=== PATIENT | female | born 1940 | race Caucasian/White ===

== ENCOUNTER 2024-07-28 09:39 | Inpatient (IN) | payer OTHER, SELFPAY ==
[2024-07-25 21:46] VITALS: BP 122/57; BMI 26.1
[2024-07-25] MEDS: NORCO 5/325 1 TABLET PO (22:28)
--- NOTE | 2024-07-25 23:13 | ED.MUSCINJ ---
HPI-Injury
General
Chief Complaint: Fall
Source: patient
Exam Limitations: none
Time Seen by Provider: 07/25/24 21:46
Nursing documentation reviewed up to this point in time: agreed with
History of Present Illness-Injury
Is this injury a work related problem?: No
Is pt an associate of [facility]/[place]?: No
Initial Injury comments:
Patient to ED s/p fall. States she was walking in kitchen to get a piece of gum. States she is unsure what made her fall. She remembers falling. Denies hitting her head. COmplains of pain to right shoulder, elbow, hip. Brought to ED via EMS
for eval.
Past History
Past History
ED Past Medical History: Arrthythmia, HTN, Hypercholesterolemia, Hypothyroidism and Other
Review of Systems
Review of Systems
Allergies reviewed?: Yes
All Other Systems: ROS reviewed and negative except as documented in HPI and ROS
Constitutional: Reports no symptoms
EENT: Reports no symptoms
Respiratory: Reports no symptoms
Cardiac: Reports no symptoms
ABD/GI: Reports no symptoms
: Reports no symptoms
Musculoskeletal: Reports joint pain (Pain to right shoulder, right elbow, right hip)
Skin: Reports no symptoms
Neurological: Reports no symptoms
Psychiatric: Reports no symptoms
Musculoskeletal Injury Exam
Musculoskeletal Injury Exam
Right Shoulder:
Pain with Movement?: Moderate
Tender to palpation?: Moderate
Soft tissue swelling?: None
External deformity and angulation?: None
Joint effusion?: None
Contusion?: Moderate
Hematoma-local bleeding into tissue?: None
Strain- Sprain- Tear (Connective tissue injury)?: None
Crepitus with movement?: No
Joint instability?: No
Malalignment/deformity?: No
Range of motion: Limited
Distal skin color and temperature: normal-warm & good color
Capillary Refill: normal
Normal distal neurovascular exam?: Yes
Right Elbow:
Pain with Movement?: Moderate
Tender to palpation?: Moderate
Soft tissue swelling?: Moderate
External deformity and angulation?: None
Joint effusion?: None
Contusion?: Moderate
Hematoma-local bleeding into tissue?: Moderate
Strain- Sprain- Tear (Connective tissue injury)?: None
Crepitus with movement?: No
Joint instability?: No
Malalignment/deformity?: No
Range of motion: Limited
Distal skin color and temperature: normal-warm & good color
Capillary Refill: normal
Normal distal neurovascular exam?: Yes
Right Hip:
Pain with Movement?: Moderate
Tender to palpation?: None
Soft tissue swelling?: None
External deformity and angulation?: None
Joint effusion?: None
Contusion?: Moderate
Hematoma-local bleeding into tissue?: None
Strain- Sprain- Tear (Connective tissue injury)?: None
Crepitus with movement?: No
Joint instability?: No
Malalignment/deformity?: No
Range of motion: Full
Distal skin color and temperature: normal-warm & good color
Capillary Refill: normal
Normal distal neurovascular exam?: Yes
Phy Exam
General Physical Exam
General Presentation: well appearing and moderate distress
General age: appears stated age
General Skin: warm and dry
General Habitus: normal
General Mental: alert
General Hydration: appears well hydrated
Eye Exam
Eye Exam: PERRL, EOMI and conjunctiva normal
Cardiovascular Exam
Cardiovascular Exam: regular rate/rhythm and no edema
Pulmonary Exam
Pulmonary Exam: lungs clear, no respiratory distress and chest non tender
Gastrointestinal Exam
Gastrointestinal Exam: non tender and soft
Neurological Exam
Neurological Exam: alert, oriented x3, CN II-XII intact, no motor deficits, no sensory deficits and speech normal
Musculoskeletal Exam
Musculoskeletal Exam: neuro vasc intact and other (Pain to right shoulder, right elbow and right hip)
Skin Exam
Skin Exam: normal color, warm/dry and no rash
Psychiatric Exam
Psychiatric Exam: normal mood/affect
Injury Course
Orders/Labs/Results
Orders:
Orders
07/25/24 21:53
EKG [Electrocardiogram (*1)] Urgent
Reason for Study: Shortness of Breath
EKG- Treatment ONCE
07/25/24 21:55
Elbow, 3 View, Right [CR Elbow - Right Min 3 Views] Urgent
Comment:
Reason For Exam: fall
Hip, Right 2-3 Views [CR Hip - RT w/wo Pel 2-3 Vw*] Urgent
Comment:
Reason For Exam: fall
Include a pelvis x-ray?: Yes
Shoulder, Right, Trauma [CR Shoulder, Trauma - Right] Urgent
Comment:
Reason For Exam: fall
07/25/24 22:24
Hydrocodone 5/APAP 325 [Mcwilliams 5/325] 1 tablet PO NOW STA
07/25/24 23:11
Long Arm Right-Treatment ONCE
Sling Right-Treatment ONCE
07/26/24 01:08
Complete Blood Count/With Diff Urgent
Comprehensive Metabolic Panel Urgent
07/26/24 01:17
Admit/Transfer Patient As Directed
Co-Sign Provider:
Level of Care: Observation services
Assign to:: Medical/Surgical
Physician / Group: hospitalist
Diagnosis: ambulatory dysfunction
HYDROmorphone [Dilaudid] 0.25 mg IV NOW STA
PRN Pain Medication Management As Directed
May give lesser potent ordered pain med per pt: Yes
preference::
Protocol:: Medication orders for pain may be administered in a
manner that supports deferring to patient preference
when the pt is:
- Requesting an ordered lesser potent pain medication.
Least to most potent pain medications are defined
as: acetaminophen < NSAID < tramadol < opioids
(morphine, oxycodone, hydromorphone).
- Requesting a lesser dose of the same medication IF
ORDERED.
- Requesting a less intrusive route of administration
if both routes are prescribed by the provider (PO <
IV).
07/26/24 01:18
Code Status As Directed
Resuscitation Status: Full Code
07/26/24 02:00
Flush (0.9% Sodium Chloride) [Flush (Nss)] See Dose Instructions IV PER PROTOCOL
07/26/24 03:56
Bisacodyl [Dulcolax] 10 mg RECTAL [id number] PRN
Docusate W/Senna [Senokot-S] 1 tablet PO BIDPRN PRN
Oxycodone [Roxicodone] 5 mg PO Q4HPRN PRN
Polyethylene Glycol Powder [Miralax] 17 grams PO DAILYPRN PRN
07/26/24 03:56
VTE Contraindication Routine
VTE Mechanical Device Contraindication: Medical Contraindication
Pharmocologic Contraindication: Medical Contraindication
Activity As Directed
Activity Level: With Assistance
Vital Signs As Directed
Frequency: Per unit guidelines
O2 Therapy [RESP] Routine
Nasal Cannula Liter Flow: 2 LPM
Titrate/Wean O2 to maintain O2 sat greater than (%): 93
Pulse Ox/spot Check [RESP] Routine
Quantity: 1
Pt Eval And Treat Routine
Activity Level: With Assistance
07/26/24 04:00
Acetaminophen [Tylenol] 650 mg PO Q4HWA
07/26/24 Breakfast
Regular
At Your Request: Full Participation
07/26/24 08:00
Apixaban [Eliquis] 2.5 mg PO BID
07/26/24 18:00
Atorvastatin [Lipitor] 40 mg PO QPM
Abnormal Lab Results
07/26/24
01:08
WBC 13.6 H 10^3/uL
(4.8-10.8)
RBC 3.89 L 10^6/uL
(4.20-5.40)
Hgb 11.7 L g/dL
(12.0-16.0)
Hct 34.9 L %
(37.0-47.0)
Abs Immat Gran (auto) 0.1 H 10^3/uL
(0-0.05)
Absolute Neuts (auto) 12.1 H 10^3/uL
(1.4-6.5)
Absolute Lymphs (auto) 0.6 L 10^3/uL
(1.2-3.4)
Absolute Monos (auto) 0.7 H 10^3/uL
(0.1-0.6)
Neutrophils % 89.4 H %
(42.2-75.2)
Lymphocytes % 4.6 L %
(20.5-51.1)
BUN 40 H mg/dl
(7-17)
Creatinine 1.1 H mg/dL
(0.6-1.0)
Glucose 146 H mg/dl
(70-99)
AST 52 H U/L
(14-36)
07/26/24 01:08
07/26/24 01:08
*Radiology
Radiology exam reviewed: preliminary read by ED provider (proximal ulna fx)
*Critical Care Note
Total Time (30-74mins, 75-104mins- exclusive of procedures): Not Applicable
Update Note
Update Note:
Patient to ED s/p fall. Reports pain to right shoulder, elbow and hip. No pain to palpation of hip and shoulder, pain only with movment. Pain and swelling to left elbow. Xrays reviewed. Fx to right proximal ulna noted. No fracture to hip or
shoulder. RUE placed in long arm splint and sling. Given Mcwilliams for pain. SHe states she is unable to move and can not go home. does not feel he can care for her. Will admit tonight for pain management, will need PT eval in AM
ED Attending Note
-
Portions of this chart may have been created with voice recognition software.� Occasional wrong word or��sound alike� substitutions may have occurred due to the inherent limitations of voice recognition software.
Discharge Plan
Departure
Patient Disposition: Admit
Date of Disposition: 07/26/24
Time of Disposition: 00:12
Presentation/result/management discussed w/ accepting MD/DO: Hospitalist
Patient with high blood pressure during this ER visit?: No
Condition: Fair
Covid-19: Not Applicable
Discharge Problem:
Ambulatory dysfunction, Elbow fracture
Interventions
Interventions:
*Risk Screen - Suicide Last Done: 07/25/24 21:46
*General Assessment Last Done: 07/25/24 21:46
*Neglect/Abuse Screening Last Done: 07/25/24 21:46
ED- Fall Risk Assessment Last Done: 07/25/24 22:00
*ED COVID-19 Vaccine History Last Done: 07/25/24 21:46
*Nursing Disposition Last Done: 07/26/24 03:53
ED-Musculoskeletal Assessment Last Done: 07/25/24 22:00
ED- Neurological Assessment Last Done: 07/25/24 22:00
ED-Skin Assessment Last Done: 07/25/24 22:00
Discharge Date and Time
Discharge Date/Time: 07/26/24 03:55
[2024-07-26] VITALS (13 sets, daily range): BP systolic 88–121; BP diastolic 48–69; PULSE 78; O2SAT 95; BMI 25.5
--- NOTE | 2024-07-26 01:10 | HPS.HSE ---
Family Physician
-
Family Physician: Dinora Haywood
Chief Complaint
-
Generalized pain, status post fall and a right elbow fracture
History of Present Illness
This is a 84-year-old with past medical history significant for atrial fibrillation on anticoagulation hypertension and hyperlipidemia who presents to the emergency department from home after fall.
The mechanism of the fall is unclear. Patient denies any loss of consciousness. She was standing at the kitchen counter when she suddenly fell without any loss of consciousness. She denied any antecedent chest pain, palpitations lightheadedness
dizziness nausea headache dyspnea or vision changes. He had been feeling otherwise in usual state of health prior to the episode. She did not recall any sleeping. She does not recall turning or injuring herself at that moment. Due to the severe
pain she was helped up by family and brought to the emergency department. She did not hit her head. In the emergency department the patient was alert coherent and in no acute distress except for pain. She was placed in a splint and in a sling
applied. Patient felt debilitated and she could not go home because she has no one else except for spouse frequently care of her at home.
Initial vital signs in ED were stable with a blood pressure of 120/50 that trended down to 90 systolic. Pulse was 83 and regular and she was at 90% on room air. ECG showed a normal sinus rhythm with a right bundle branch block and rate was 83.
Labs are pending at this time.
Medical History
Past Medical History
Past Medical History: Reports Arrhythmia (Paroxysmal atrial fibrillation), HTN and Hypercholesterolemia
Past Surgical History: Reports
Social History
Tobacco: Non-smoker
Alcohol: Occasional
Drug: None
Personal:
Living: With Family
Employment: Retired
Family History
Family History: Not pertinent
Allergies / Home Medications
Allergies reflects when Allergies were last updated in [employer].
Home Medications with original date entered in [employer]
Allergy/Medication List:
Allergies
Allergy/AdvReac Type Severity Reaction Status Date / Time
No Known Allergies Allergy Unverified 07/25/24 21:55
Home Medications
apixaban 2.5 mg tablet (Eliquis) 2.5 mg PO BID 07/26/24
atorvastatin 40 mg tablet 40 mg PO HS 07/26/24
olmesartan 40 mg-hydrochlorothiazide 12.5 mg tablet 1 tab PO DAILY 07/26/24
Review of Systems
-
History Source: Patient
Constitutional: Reports No Symptoms
EENT: Reports No Symptoms
Respiratory: Reports No Symptoms
Cardiac: Reports No Symptoms
Abdomen/GI: Reports No Symptoms
: Reports No Symptoms
Musculoskeletal: Reports Joint Pain
Skin: Reports No Symptoms
Neurological: Reports No Symptoms
Endocrine: Reports No Symptoms
Hematologic/Lymphatic: Reports No Symptoms
Psych: Reports No Symptoms
Physical Exam
Vital Signs
Vital Signs
Temp Pulse Resp BP Pulse Ox
98.1 F 85 15 122/57 87
07/25/24 21:46 07/25/24 21:46 07/25/24 21:46 07/25/24 21:46 07/25/24 21:46
Physical Exam
General: Well Developed, Well Nourished, No Apparent Distress and Comfortable
HEENT: NormoCephalic, Anicteric, Moist mucous membranes and Atraumatic
Respiratory: Clear
Cardiac: S1/S2 and Regular Rhythm
Breast: Deferred by me
GI: Soft, Non Tender, Non Distended and Normal Bowel Sounds
Rectal: Deferred by Provider
Genito-urinary: Deferred by me
Musculoskeletal: No Clubbing, No Cyanosis, No Edema and Other (Right arm splint and in a sling)
Skin: Warm
Neuro: AO x 3 and Nonfocal/grossly intact
Psych: Calm
Data Reviewed
-
Diagnostic Radiology: Image Personally Visualized and interpreted
Medical Tests (Nuc Med, Echo, EKG etc): Image Personally Visualized and interpreted
Old Records: Reviewed
Impression/Plan
-
IMPRESSION:
PLAN:
Ambulatory dysfunction - Patient with right elbow fracture. Fall appears mechanical w/o loc but mechanism is not entirely clear
- admit to med/surg observation
- pain control
- PT OT evaluation
- case management
- f/u with outpatient ortho
pAFIB - Rate controlled
- continue eliquis 2.5 bid
- rate management pending meds and repeat bp
HTN
- hold bp meds for now while titrating pain control
DVT PPX - on apixaban
Code status - full code
[2024-07-26 01:17] LABS: % Basophils 0.1 % (0-2); % Immature Granulocytes 0.4 % (0-0.5); % Lymphocytes 4.6 % (20.5-51.1); % Monocytes 5.5 % (1.7-9.3); % Neutrophils 89.4 % (42.2-75.2); Absolute Immature Granulocytes 0.1 10^3/uL (0-0.05); Absolute Lymphocytes 0.6 10^3/uL (1.2-3.4); Absolute Monocytes 0.7 10^3/uL (0.1-0.6); Absolute Neutrophils 12.1 10^3/uL (1.4-6.5); Hematocrit 34.9 % (37.0-47.0); Hemoglobin 11.7 g/dL (12.0-16.0); Mean Corp Hgb Conc. 33.5 g/dL (33.0-37.0); Mean Corpuscular Hgb 30.1 pg (27.0-31.0); Mean Corpuscular Volume 89.7 fL (81.0-99.0); Mean Platelet Volume 9.6 fL (7.4-10.4); Nucleated Red Blood Cells % 0 %; Platelet Count 215 10^3/uL (130-400); Red Blood Cell Count 3.89 10^6/uL (4.20-5.40); Red Cell Dist. Width 12.7 % (11.5-14.5); White Blood Cell Count 13.6 10^3/uL (4.8-10.8)
--- NOTE | 2024-07-26 01:30 | EDRN ---
Assumed care of pt. at change of shift, vitals updated, IV placed/labs drawn and sent, pt. awaits ready bed. Ordered medicaton to be given for pain per pt. request. RN encouraged pt. to change into gown so RN could assess full body, but pt. refused,
stating, 'I am very comfortable like this and I don't think it's necessary to change into a gown, I don't want to'. Depspite RN repeat encouragement, pt. continues to refuse.
[2024-07-26 01:33] LABS: ALT (SGPT) 32 U/L (0-35); AST (SGOT) 52 U/L (14-36); Albumin 4.2 g/dl (3.5-5.0); Alkaline Phosphatase 56 U/L (38-126); Blood Urea Nitrogen 40 mg/dl (7-17); Calcium 9.4 mg/dl (8.4-10.2); Carbon Dioxide 26 mmol/L (22-30); Chloride 101 mmol/L (98-107); Estimated Creatinine Clearance 32 ml/min; Glucose 146 mg/dl (70-99); Potassium 4.4 mmol/L (3.5-5.1); Sodium 137 mmol/L (135-145); Total Bilirubin 0.4 mg/dl (0.2-1.3); Total Protein 6.8 g/dl (6.3-8.2); eGFR 49.55
[2024-07-26] MEDS: DILAUDID 0.25 MG IV ×2 (01:42→18:14)
[2024-07-26] MEDS: FLUSH (NSS) 1 FLUSH IV (01:43)
[2024-07-26] MEDS: NSS 500 IV (02:20)
--- NOTE | 2024-07-26 04:00 | PTCARENOTE ---
Patient arrived to unit from ED via stretcher on 4L of O2. Patient pulled over to bed, wearing sling on right arm. Patient A&Ox3. Oriented to unit with call light within reach. Care ongoing.
[2024-07-26] MEDS: TYLENOL 650 MG PO ×3 (04:11→12:36)
[2024-07-26] MEDS: ELIQUIS 2.5 MG PO ×2 (09:39→19:37)
--- NOTE | 2024-07-26 12:03 | CON.ORTHO ---
Consultation - Orthopedics
History
HPI: 83-year-old female presents emergency department yesterday status post fall at home. She was subsequently found to have a nondisplaced right distal clavicle fracture as well as a right olecranon fracture. She was admitted to the medical
service. Orthopedics is consulted for further evaluation and treatment. This morning patient is predominately complaining of lumbar/low back pain. She does localize some mild discomfort to the right AC joint area as well as her right elbow. She
reports that she is comfortable at rest. She reports that she lives at home with her . She does not use any ambulatory aids for assistance
Allergies / Home Medications
Past medical history: Arrhythmia, hypertension, hypercholesterolemia, hypothyroidism
Past surgical history:
Family history: Not pertinent
Social history: Non-smoker, , lives at home with family
Allergy/AdvReac Type Severity Reaction Status Date / Time
No Known Allergies Allergy Unverified 07/25/24 21:55
�Medication �Instructions �Recorded
apixaban 2.5 mg tablet (Eliquis) 2.5 mg PO BID 07/26/24
atorvastatin 40 mg tablet 40 mg PO HS 07/26/24
olmesartan 40 1 tab PO DAILY 07/26/24
mg-hydrochlorothiazide 12.5 mg
tablet
Vital Signs / Lab Results
Temp Pulse Resp BP Pulse Ox
98.3 F 93 16 114/59 95
07/26/24 08:02 07/26/24 08:02 07/26/24 08:02 07/26/24 08:02 07/26/24 08:02
07/26/24 01:08
07/26/24 01:08
10 point review systems reviewed and negative unless otherwise stated
General: Comfortable at rest, somewhat terse with answering questions
Musculoskeletal right upper extremity
There are some mild ecchymotic staining noted over the distal clavicle area
This is tender to palpation
No erythematous skin changes
Splint was removed right elbow, skin was closed, there is moderate tenderness palpation over tip of olecranon
Patient was able to actively extend elbow with only mild lag
Sensation in tact light touch on the speech distally
Motor intact to median, radial, ulnar nerve distributions distally
No significant tenderness palpation midline lumbar spine moderate tenderness palpation paralumbar soft tissues
Patient is able to straight leg raise bilaterally although there is some reproducible back pain and leg pain
No other areas of bony tenderness palpation crepitation long bones or joints on tertiary exam
Diagnostic studies
X-rays right shoulder reveal essentially nondisplaced distal clavicle fracture. Radiographs right elbow reveal very minimally displaced intra-articular olecranon fracture
Assessment / Plan
84-year-old female community ambulator status post fall with nondisplaced right distal clavicle fracture, very minimally displaced intra-articular right olecranon fracture with intact extensor mechanism. I had a long discussion the patient
regarding diagnosis and treatment options. After discussion we mutually elected proceed with nonsurgical treatment for both fractures. Would recommend continued immobilization in posterior slab splint and sling. Would recommend follow-up
outpatient in about 2 weeks for repeat evaluation. Patient is predominately complain of lumbar back pain. Will plan to order lumbar spine x-rays to rule out any compression fracture. Would still recommend mobilization with physical therapy pain
control. Please reach out with any questions or concerns
[2024-07-26] MEDS: ROXICODONE 5 MG PO (12:36)
--- NOTE | 2024-07-26 13:12 | W.PN.UPDATE ---
Update Note
Progress Note Update
Non-billable addendum (H&P submitted 1 AM today)
admitted with fall and found to have R clavicle fracture, R elbow fracture and also back pain with imaging pending
reports significant pain, requesting further IV pain meds
seen by orthopedics; no operative intervention recommended
Assessment:
Ambulatory dysfunction with mechanical fall
- PT/OT - SNF recommended
Traumatic fractures
- Elbow xray: Acute fracture of the olecranon process of the ulna without significant displacement.
- shoulder xray: nondisplaced right distal clavicle fracture
- evaluated by orthopedics: nonoperative management with immobilization in posterior slab splint and sling.
- OP f/u in 2 weeks for repeat exam/radiographs
Lumbar back pain, traumatic
- await L spine Xrays
- pain control with Tylenol QID standing, prn Oxycodone, prn Dilaudid
Leukocytosis
- check UA
- CXR without acute infection
- monitor WBC and fever trend
Parox A. Fib
Essential HTN
- continue Eliquis
- holding ARB/HCTZ - likely resume in AM if BP elevated
HLD - statin
Suspected CKD stage 3b
- monitor Cr
DVT ppx: Eliquis
Code: Full
--- NOTE | 2024-07-26 13:54 | CM ---
Attempted to meet with patient however she was in x ray. Placed a call to patient's spouse however there was no answer. Will attempt to meet with patient later today.
[2024-07-26] MEDS: TYLENOL PO (15:18)
[2024-07-26] MEDS: LIPITOR 40 MG PO (18:02)
[2024-07-26 18:19] LABS: Urine Albumin Trace (Neg - Trace); Urine Bilirubin Negative (Negative); Urine Character Clear (Clear); Urine Color Yellow; Urine Glucose Negative (Negative); Urine Ketone Negative (Negative); Urine Leukocyte Negative (Negative); Urine Nitrite Negative (Negative); Urine Occult Blood Negative (Negative); Urine Urobilinogen Negative (Neg - 1+)
--- NOTE | 2024-07-26 18:56 | PTCARENOTE ---
Pt 95% POX ON 3L. Titrated to room air during shift, found to be 87% RA, denies S.O.B. Currently on 1L O2 95%.
[2024-07-26] MEDS: TYLENOL 1000 MG PO (19:36)
[2024-07-27] MEDS: TYLENOL 1000 MG PO ×3 (01:59→19:37)
[2024-07-27 07:00] VITALS: BP 116/62
[2024-07-27 08:01] LABS: Blood Urea Nitrogen 31 mg/dl (7-17); Calcium 8.8 mg/dl (8.4-10.2); Carbon Dioxide 29 mmol/L (22-30); Chloride 101 mmol/L (98-107); Estimated Creatinine Clearance 33 ml/min; Glucose 107 mg/dl (70-99); Sodium 134 mmol/L (135-145); eGFR 55.55
[2024-07-27 08:19] LABS: Hematocrit 31.1 % (37.0-47.0); Hemoglobin 10.4 g/dL (12.0-16.0); Mean Corp Hgb Conc. 33.4 g/dL (33.0-37.0); Mean Corpuscular Volume 89.6 fL (81.0-99.0); Mean Platelet Volume 10.3 fL (7.4-10.4); Platelet Count 163 10^3/uL (130-400); Red Blood Cell Count 3.47 10^6/uL (4.20-5.40); Red Cell Dist. Width 13.1 % (11.5-14.5); White Blood Cell Count 9.9 10^3/uL (4.8-10.8)
[2024-07-27 09:17] VITALS: BP 91/49
[2024-07-27] MEDS: ELIQUIS 2.5 MG PO ×2 (09:28→19:37)
[2024-07-27] MEDS: ROXICODONE 5 MG PO (09:30)
--- NOTE | 2024-07-27 10:41 | W.PN.HOSP.TC ---
Today's Communication/Plan
-
continue pain control
PT/OT
MRI L spine
Assessment / Plan
Assessment / Plan
Assessment:
Ambulatory dysfunction with mechanical fall
- PT/OT - SNF recommended but patient may opt for home/VN
Traumatic fractures
- Elbow xray: Acute fracture of the olecranon process of the ulna without significant displacement.
- shoulder xray: nondisplaced right distal clavicle fracture
- evaluated by orthopedics: nonoperative management with immobilization in posterior slab splint and sling.
- OP f/u in 2 weeks for repeat exam/radiographs
Lumbar back pain, traumatic
- L spine Xray: Mild L1 compression fracture. Age indeterminate. Multilevel degenerative disc disease.
- obtain MRI L spine with radiating pain. No alarm signs.
- pain control with Tylenol QID standing, prn Oxycodone, prn Dilaudid
Leukocytosis
- reactive
- UA negative
- CXR without acute infection
- monitor WBC and fever trend
Parox A. Fib
Essential HTN
- continue Eliquis
- holding ARB/HCTZ - likely resume in AM if BP elevated
HLD - statin
Suspected CKD stage 3b
- monitor Cr
DVT ppx: Eliquis
Code: Full
Anticipated Discharge: > 48 hours
Subjective/Interval History
-
Date of Service: July 27, 2024
pain stable
reports back pain and leg pain with movement
Objective Data
-
Labs:
Laboratory Results
07/27/24
06:54
WBC 9.9
Hgb 10.4 L
Hct 31.1 L
Plt Count 163 D
Sodium 134 L
Potassium 4.0
Chloride 101
Carbon Dioxide 29
BUN 31 H
Creatinine 1.0
Glucose 107 H
Calcium 8.8
Vital Signs:
Vital Signs
Temp Pulse Resp BP Pulse Ox
97.9 F 77 20 116/62 95
07/27/24 07:00 07/27/24 07:00 07/27/24 07:00 07/27/24 07:00 07/27/24 07:00
I&O
07/26/24 07/27/24 07/28/24
06:59 06:59 06:59
Intake Total 480 / 480 480 / 480 480 / 480
Balance 480 / 480 480 / 480 480 / 480
Physical Exam
-
General: No Apparent Distress
HEENT: Normocephalic and Atraumatic
Respiratory: Negative Wheezes
Cardiac: Regular Rhythm and S1/S2
GI: Soft and Nontender
Genito-urinary: No Costovertebral Tender
Musculoskeletal: No Edema
Neuro: AO x 3
Hematologic / Lymphatic: No Lymphadenopathy
Psych: Calm
Data Reviewed
-
Total Time Spent with Patient (in minutes): 45
Labs: Labs Reviewed by me
[2024-07-27] MEDS: TYLENOL PO (14:32)
[2024-07-27 15:10] VITALS: BP 128/68
[2024-07-27] MEDS: LIPITOR 40 MG PO (16:43)
[2024-07-27] MEDS: DILAUDID 0.25 MG IV (22:18)
[2024-07-27 23:28] VITALS: BP 118/61
[2024-07-28] MEDS: TYLENOL PO (03:58)
[2024-07-28 08:17] LABS: Hematocrit 31.6 % (37.0-47.0); Hemoglobin 10.6 g/dL (12.0-16.0); Mean Corp Hgb Conc. 33.5 g/dL (33.0-37.0); Mean Corpuscular Hgb 30.2 pg (27.0-31.0); Mean Platelet Volume 10.1 fL (7.4-10.4); Platelet Count 166 10^3/uL (130-400); Red Blood Cell Count 3.51 10^6/uL (4.20-5.40); Red Cell Dist. Width 12.9 % (11.5-14.5); White Blood Cell Count 9.5 10^3/uL (4.8-10.8)
[2024-07-28] MEDS: SENOKOT-S 1 TABLET PO (08:21)
[2024-07-28] MEDS: TYLENOL 1000 MG PO ×3 (08:21→19:49)
[2024-07-28] MEDS: DULCOLAX 10 MG RECTAL (08:21)
[2024-07-28] MEDS: ELIQUIS 2.5 MG PO ×2 (08:22→19:48)
[2024-07-28] MEDS: ROXICODONE 5 MG PO ×3 (08:34→22:35)
[2024-07-28] MEDS: MIRALAX 17 GRAMS PO (08:35)
[2024-07-28 08:40] VITALS: BP 95/65
[2024-07-28 08:57] LABS: Blood Urea Nitrogen 27 mg/dl (7-17); Calcium 8.9 mg/dl (8.4-10.2); Carbon Dioxide 29 mmol/L (22-30); Chloride 100 mmol/L (98-107); Estimated Creatinine Clearance 33 ml/min; Glucose 108 mg/dl (70-99); Potassium 3.9 mmol/L (3.5-5.1); Sodium 134 mmol/L (135-145); eGFR 55.55
--- NOTE | 2024-07-28 11:51 | W.PN.UPDATE ---
Update Note
Progress Note Update
MRI and radiographs lumbar spine reviewed.
Non displaced sacral ala fracture, lumbar spinal stenosis/spondylosis. No acute compression fracture noted
No orthopedic intervention planned
WBAT BL lower extremity, mobilize with therapy, pain control
Follow up outpatient in 2-3 weeks
[2024-07-28 13:24] VITALS: BP 101/61; PULSE 83; O2SAT 93
--- NOTE | 2024-07-28 13:30 | W.PN.HOSP.TC ---
Today's Communication/Plan
-
encourage oral pain control
DC planning to SNF
Assessment / Plan
Assessment / Plan
Assessment:
Ambulatory dysfunction with mechanical fall
- PT/OT - SNF recommended but patient may opt for home/VN
Traumatic fractures
- Elbow xray: Acute fracture of the olecranon process of the ulna without significant displacement.
- shoulder xray: nondisplaced right distal clavicle fracture
- evaluated by orthopedics: nonoperative management with immobilization in posterior slab splint and sling.
- OP f/u in 2 weeks for repeat exam/radiographs
Lumbar back pain, traumatic
- L spine Xray: Mild L1 compression fracture. Age indeterminate. Multilevel degenerative disc disease.
- MRI L spine: Vertically oriented acute nondisplaced fracture of the right sacral ala.
- pain control with Tylenol QID standing, prn Oxycodone, prn Dilaudid
Leukocytosis
- reactive
- UA negative
- CXR without acute infection
- monitor WBC and fever trend
Parox A. Fib
Essential HTN
- continue Eliquis
- holding ARB/HCTZ - likely resume in AM if BP elevated
HLD - statin
Suspected CKD stage 3b
- monitor Cr
DVT ppx: Eliquis
Code: Full
Anticipated Discharge: 24 - 48 hours
Subjective/Interval History
-
Date of Service: July 28, 2024
pain controlled with oxycodone, more pain during ambulation attempts
+ BM today
Objective Data
-
Labs:
Laboratory Results
07/28/24
07:46
WBC 9.5
Hgb 10.6 L
Hct 31.6 L
Plt Count 166
Sodium 134 L
Potassium 3.9
Chloride 100
Carbon Dioxide 29
BUN 27 H
Creatinine 1.0
Glucose 108 H
Calcium 8.9
Vital Signs:
Vital Signs
Temp Pulse Resp BP Pulse Ox
97.7 F 86 20 95/65 97
07/28/24 08:40 07/28/24 08:40 07/28/24 08:40 07/28/24 08:40 07/28/24 08:40
I&O
07/27/24 07/28/24 07/29/24
06:59 06:59 06:59
Intake Total 480 / 480 1620 / 1620
Balance 480 / 480 1620 / 1620
Physical Exam
-
General: No Apparent Distress
HEENT: Normocephalic and Atraumatic
Respiratory: Negative Wheezes
Cardiac: Regular Rhythm and S1/S2
GI: Soft
Genito-urinary: No Costovertebral Tender
Musculoskeletal: No Edema
Neuro: AO x 3
Hematologic / Lymphatic: No Lymphadenopathy
Psych: Calm
Data Reviewed
-
Total Time Spent with Patient (in minutes): 44
Labs: Labs Reviewed by me
[2024-07-28 16:56] VITALS: BP 123/48
[2024-07-28] MEDS: LIPITOR 40 MG PO (18:27)
[2024-07-28 23:29] VITALS: BP 111/52
[2024-07-29] MEDS: TYLENOL PO ×2 (02:19→20:33)
[2024-07-29] MEDS: SYNTHROID 25 MCG PO (05:46)
[2024-07-29 07:15] LABS: Hematocrit 28.4 % (37.0-47.0); Hemoglobin 9.7 g/dL (12.0-16.0); Mean Corp Hgb Conc. 34.2 g/dL (33.0-37.0); Mean Corpuscular Hgb 30.5 pg (27.0-31.0); Mean Corpuscular Volume 89.3 fL (81.0-99.0); Mean Platelet Volume 10.5 fL (7.4-10.4); Platelet Count 171 10^3/uL (130-400); Red Blood Cell Count 3.18 10^6/uL (4.20-5.40); White Blood Cell Count 8.5 10^3/uL (4.8-10.8)
[2024-07-29 07:23] VITALS: BP 121/49
[2024-07-29 07:51] LABS: Blood Urea Nitrogen 33 mg/dl (7-17); Calcium 8.7 mg/dl (8.4-10.2); Carbon Dioxide 31 mmol/L (22-30); Chloride 97 mmol/L (98-107); Estimated Creatinine Clearance 30 ml/min; Glucose 106 mg/dl (70-99); Potassium 4.4 mmol/L (3.5-5.1); Sodium 133 mmol/L (135-145); eGFR 49.55
[2024-07-29] MEDS: ELIQUIS 2.5 MG PO ×2 (08:17→20:32)
[2024-07-29] MEDS: TYLENOL 1000 MG PO ×2 (08:17→13:28)
[2024-07-29] MEDS: DILAUDID 0.25 MG IV (08:18)
[2024-07-29] MEDS: OCUVITE SOFTGEL 1 CAP PO (08:18)
[2024-07-29] MEDS: FLUSH (NSS) 2 FLUSH IV (08:20)
--- NOTE | 2024-07-29 09:49 | CM ---
Addendum entered by Gem Leonard 07/29/24 16:21:
Per Beth/Alexandru liaison, pt does not meet criteria for acute rehab.
TT PT, Tejal who completed eval today informing of this. Per Tejal, pt is appropriate for SNF and will update PT eval/note to reflect this
Pt prev expressed interest in [facility] and [facility]. Referrals sent via [facility]
Will need auth
Original Note:
Chart reviewed for d/c planning. Per PT/OT pt is currently being recommended for acute rehab at this time
Discussed w/ pt at bedside. Per pt, she is agreeable to rehab as she states she needs it but was under the impression she was going to a SNF. CM discussed PT/OT eval yesterday and informed of the acute rehab recommendation. Pt was a bit confused of
SNF vs Acute rehab, CM explained acute is more hours of therapy per day vs skilled. Pt stated she will have to further think about this as she states she doesn't believe she can do a fast pace therapy route.
CM TT hospitalist for physiatry consult to determine acute rehab appropriateness
Plan: Acute rehab being recommended. Will await physiatry assessment
[2024-07-29] MEDS: ROXICODONE 5 MG PO ×2 (11:06→20:35)
--- NOTE | 2024-07-29 11:25 | W.PN.HOSP.TC ---
Today's Communication/Plan
-
add higher dose prn Oxy and keep low dose Prn Oxy. try to wean Dilaudid
PMR eval for acute rehab
Assessment / Plan
Assessment / Plan
Assessment:
Ambulatory dysfunction with mechanical fall
- PT/OT - SNF vs acute rehab. PMR eval.
Traumatic fractures
- Elbow xray: Acute fracture of the olecranon process of the ulna without significant displacement.
- shoulder xray: nondisplaced right distal clavicle fracture
- evaluated by orthopedics: nonoperative management with immobilization in posterior slab splint and sling.
- OP f/u in 2 weeks for repeat exam/radiographs
Lumbar back pain, traumatic
- L spine Xray: Mild L1 compression fracture. Age indeterminate. Multilevel degenerative disc disease.
- MRI L spine: Vertically oriented acute nondisplaced fracture of the right sacral ala.
- pain control with Tylenol QID standing, prn Oxycodone, prn Dilaudid
Leukocytosis
- reactive
- UA negative
- CXR without acute infection
- monitor WBC and fever trend
Parox A. Fib
Essential HTN
- continue Eliquis
- holding ARB/HCTZ
- monitor BP
HLD - statin
Suspected CKD stage 3b
- monitor Cr
DVT ppx: Eliquis
Code: Full
Anticipated Discharge: > 48 hours
Subjective/Interval History
-
Date of Service: July 29, 2024
pain improving slowly
now agreeable to acute rehab eval
Objective Data
-
Labs:
Laboratory Results
07/29/24
06:43
WBC 8.5
Hgb 9.7 L
Hct 28.4 L
Plt Count 171
Sodium 133 L
Potassium 4.4
Chloride 97 L
Carbon Dioxide 31 H
BUN 33 H
Creatinine 1.1 H
Glucose 106 H
Calcium 8.7
Vital Signs:
Vital Signs
Temp Pulse Resp BP Pulse Ox
98.3 F 83 18 121/49 95
07/29/24 07:23 07/29/24 07:23 07/29/24 07:23 07/29/24 07:23 07/29/24 07:23
I&O
07/28/24 07/29/24 07/30/24
06:59 06:59 06:59
Intake Total 1620 / 1620 480 / 480
Balance 1620 / 1620 480 / 480
Physical Exam
-
General: No Apparent Distress
HEENT: Normocephalic and Atraumatic
Respiratory: Negative Wheezes
Cardiac: Regular Rhythm and S1/S2
GI: Soft and Nontender
Genito-urinary: No Costovertebral Tender
Musculoskeletal: No Edema
Neuro: AO x 3
Hematologic / Lymphatic: No Lymphadenopathy
Psych: Calm
Data Reviewed
-
Total Time Spent with Patient (in minutes): 41
Labs: Labs Reviewed by me
[2024-07-29 11:55] VITALS: BP 118/73; BP 128/66; PULSE 79; PULSE 81; O2SAT 91
[2024-07-29 13:58] VITALS: BP 118/73; BP 128/66; PULSE 79; PULSE 82; O2SAT 91
--- NOTE | 2024-07-29 14:55 | CON.MR ---
Consultation
Consultation Request
Date/Time Consultation Performed: 07/29/24 1400
Performing Provider: Dr. Ang
Reason for Consultation: Gait dysfunction, rehab options
Medical History
-
Chief Complaint: Weakness, fall, elbow fx
History of Present Illness:
I had the opportunity to see Julianna Willis in rehabilitation consultation today. This is an 84 year old female admitted on 07/26 after a fall at home. Patient states she was in the kitchen and getting some gum and then she fell, but doesn't
really know how she fell. Denies having any dizziness or vertigo symptoms or even lightheadedness prior to the fall. Doesn't remember her legs giving out but just fell. Noted in ER with right olecranon process non-displaced fracture, right
non-displaced clavicle fracture. Did have a superior endplate fracture at L1 on xrays, but had MRI of lumbar spine, and found that the L1 fracture is old/chronic but did have a right sacral ala fracture, non-displaced.
Seen by ortho and deemed non-operative care of the R elbow and clavicle and placed in a splint and sling.
Hospital course noted with CKD, elevated BUN/Cr, anemia, reactive leukocytosis with UA and CXR negative.
Patient seen at bedside this afternoon and sitting up in chair. with her in room. Complains of pain in the right elbow and arm, but denies any paresthesias or numbness into the hand or digits. 'Doesn't feel right' in the lower limbs but
denies any pain there. Some low back pain. No numbness into the lower limbs.
Past medical history with a-fib on apixaban at home, HTN, HLD.
Past Medical History
Past Medical History: HTN
Social History
Functional Level Premorbidity:
Independent for all activities. Did have cane at home but was not using it at the time
Current Funct Level: Ambulation, Transfer, UE/LE Dressing:
Transfers Mod A, Ambulation Mod Ax2 with posterior lean.
Personal:
Living: With Spouse
Number of Floors: 2 (Has 1st floor setup)
# Steps to Enter: 2
Potential First Floor Set Up: Yes
Allergies / Home Medications
Allergy/AdvReac Type Severity Reaction Status Date / Time
No Known Allergies Allergy Unverified 07/25/24 21:55
�Medication �Instructions �Recorded �Confirmed �Last Taken �Type
apixaban 2.5 mg tablet (Eliquis) 2.5 mg PO BID atrial fibrillation 07/26/24 07/28/24 07/25/24 08:00 History
atorvastatin 40 mg tablet 40 mg PO HS High Cholesterol 07/26/24 07/28/24 07/24/24 22:00 History
olmesartan 40 1 tab PO DAILY Blood Pressure 07/26/24 07/28/24 07/25/24 08:00 History
mg-hydrochlorothiazide 12.5 mg
tablet
levothyroxine 25 mcg tablet 25 mcg PO DAILY Thyroid 07/28/24 07/28/24 07/26/24 History
vit C 250 mg-vit E 90 mg-zinc 40 1 cap PO DAILY Supplement 07/28/24 07/28/24 Unknown History
mg-copper 1 [id number]
capsule (PreserVision AREDS-2)
Review Of Systems
-
History Source: Patient and Family
All other systems: Negative unless noted
Constitutional: Reports Fatigue
Eye: Reports No Symptoms
EENT: Reports No Symptoms
Respiratory: Reports No Symptoms
Cardiac: Reports No Symptoms
Abdomen/GI: Reports No Symptoms
Musculoskeletal: Reports Joint Pain and Muscle Pain
Integumentary: Reports No Symptoms
Neurological: Reports Weakness
Psych: Reports No Symptoms
Endocrine: Reports No Symptoms
Hematologic/Lymphatic: Reports No Symptoms
Immunology: Reports No Symptoms
Physical Exam
Active Medications
Generic Name Dose Route Start Last Admin
Trade Name Freq PRN Reason Stop Dose Admin
Acetaminophen 1,000 mg 07/26/24 14:00 07/29/24 13:28
Acetaminophen 500 Mg Tablet PO 08/23/24 13:59 1,000 mg
Q6H BRODY Administration
Apixaban 2.5 mg 07/26/24 08:00 07/29/24 08:17
Apixaban (Eliquis) 2.5 Mg Tablet PO 08/23/24 07:59 2.5 mg
BID BRODY Administration
Atorvastatin Calcium 40 mg 07/26/24 18:00 07/28/24 18:27
Atorvastatin (Lipitor) 40 Mg Tablet PO 08/23/24 17:59 40 mg
QPM BRODY Administration
Bisacodyl 10 mg 07/26/24 03:56 07/28/24 08:21
Bisacodyl 10 Mg Rectal Suppository RECTAL 08/23/24 03:55 10 mg
[id number] PRN Administration
constipation
Hydromorphone HCl 0.25 mg 07/29/24 11:38
Hydromorphone 0.25 Mg/0.5 Ml Syringe IV 08/12/24 11:36
Q6HPRN PRN
severe intractable pain
Levothyroxine Sodium 25 mcg 07/29/24 06:00 07/29/24 05:46
Levothyroxine 25 Mcg Tablet PO 08/26/24 05:59 25 mcg
DAILY @ 0600 BRODY Administration
Oxycodone HCl 5 mg 07/26/24 03:56 07/29/24 11:06
Oxycodone 5 Mg Regular Release Tablet PO 08/09/24 03:55 5 mg
Q4HPRN PRN Administration
moderate pain
Oxycodone HCl 10 mg 07/29/24 11:37
Oxycodone 10 Mg Regular Release Tablet PO 08/12/24 11:36
Q6HPRN PRN
severe pain
Polyethylene Glycol 17 grams 07/26/24 03:56 07/28/24 08:35
Polyethylene Glycol Powder 17 Grams Packet PO 08/23/24 03:55 17 grams
DAILYPRN PRN Administration
constipation
Senna/Docusate Sodium 1 tablet 07/26/24 03:56 07/28/24 08:21
Docusate W/Senna (Johanna-Colace) Tablet PO 08/23/24 03:55 1 tablet
BIDPRN PRN Administration
constipation
Sodium Chloride 0 flush 07/26/24 02:00 07/29/24 08:20
Sodium Chloride 0.9% (Flush) Syringe IV 08/23/24 01:59 2 flush
PER PROTOCOL BRODY Administration
Vitamin C/Vitamin E 1 cap 07/29/24 08:00 07/29/24 08:18
Vit C/Vit E/Lutein/Min/[place]-3 (Ocuvite) Capsule PO 08/26/24 07:59 1 cap
DAILY BRODY Administration
Vital Signs
Temp Pulse Resp BP Pulse Ox
98.3 F 83 18 121/49 95
07/29/24 07:23 07/29/24 07:23 07/29/24 07:23 07/29/24 07:23 07/29/24 07:23
Height 5 ft 2 in
Actual Weight 63.106 kg
Body Mass Index (BMI) 25.5
Physical Exam
Physical Exam:
General Appearance/Observation: Well-developed, well-nourished individual in no apparent distress. Sitting up in bedside chair
Pain/Comfort Assessment: Right elbow, lumbosacral
Mood/Affect: Appropriate
Eyes: Conjunctiva/Lids: normal
Ears/Nose/Throat: oral mucosa moist, throat clear. Lips/Teeth/Gums: normal
Neck: No muscle spasm or tenderness
Cardiovascular: Heart: regular, no murmur
Pulses: dorsalis pedis 2+ bilaterally
Respiratory: Respiratory Effort/Chest Expansion: normal Auscultation: Clear to auscultation bilaterally
Gastrointestinal: abdomen not tender, no distension, normal abdominal bowel sounds
Genitourinary: No Villalba
Extremities: Edema: None in LE's, no calf tenderness, no skin color/temperature changes Cyanosis: None Trophic changes: None
RUE in sling and splint, but fingers without edema. Able to move all digits without pain
Neurology Exam:
Orientation: Alert, Oriented to self, Time, Place
Higher cortical function
Speech: Intact
Repetition: Intact
Comprehension: Intact
Cranial Nerves: Intact and symmetric
Sensory:
Light touch: Intact in bilateral upper and lower extremities
-Denies any asymmetry in the right fingers/ulnar digits. No asymmettry in the feet/legs.
Reflexes:
Achilles: 1+ bilaterally
Babinski: Downgoing bilaterally
Clonus: None
Prince: Negative bilaterally
Cerebellar: Dysmetria/Ataxia: None
Musculoskeletal:
Motor: (Manual muscle scale 0-5)
Muscle SA EF WE EE FF FA HF KE DF EHL PF
Right 5 5 4 5 5 5 5
Left 5 5 5 5 5 5 4 5 5 5 5
Tone: Normal in all extremities
Range of Motion: Passively within normal limits in all extremities
Did have low back pain with hip flexion bilaterally, especially with resistance testing.
Lab Results
07/29/24 06:43
07/29/24 06:43
WBC 8.5 10^3/uL (4.8-10.8) 07/29/24 06:43
Hgb 9.7 g/dL (12.0-16.0) L 07/29/24 06:43
Hct 28.4 % (37.0-47.0) L 07/29/24 06:43
MCV 89.3 fL (81.0-99.0) 07/29/24 06:43
Plt Count 171 10^3/uL (130-400) 07/29/24 06:43
Sodium 133 mmol/L (135-145) L 07/29/24 06:43
Potassium 4.4 mmol/L (3.5-5.1) 07/29/24 06:43
Chloride 97 mmol/L (98-107) L 07/29/24 06:43
Carbon Dioxide 31 mmol/L (22-30) H 07/29/24 06:43
BUN 33 mg/dl (7-17) H 07/29/24 06:43
Creatinine 1.1 mg/dL (0.6-1.0) H 07/29/24 06:43
eGFR 49.55 07/29/24 06:43
Glucose 106 mg/dl (70-99) H 07/29/24 06:43
Calcium 8.7 mg/dl (8.4-10.2) 07/29/24 06:43
Total Bilirubin 0.4 mg/dl (0.2-1.3) 07/26/24 01:08
AST 52 U/L (14-36) H 07/26/24 01:08
ALT 32 U/L (0-35) 07/26/24 01:08
Alkaline Phosphatase 56 U/L (38-126) 07/26/24 01:08
Total Protein 6.8 g/dl (6.3-8.2) 07/26/24 01:08
Albumin 4.2 g/dl (3.5-5.0) 07/26/24 01:08
Diagnostic Results
As per HPI.
Comorbidities / Impairment Group
Comorbidities:
A-fib, HTN
Impairment Group:
Multiple ortho fractures
Assessment / Plan
Plan
Assessment:
84 year old female with ambulatory and ADL dysfunction secondary to fall, R olecranon fracture, R clavicular fracture, and sacral ala fracture.
PM&R PT/OT to increase independence with ADLs, improve balance, coordination, endurance, strength, mobility, Safety, fall prevention, community reintegration, decreased burden of care on others and family education. NWB in RUE
Multiple fracture: Non-operative treatment of olecranon fracture and clavicular fracture.
-Sacral ala fracture non-operative.
- L1 superior endplate fracture is old/chronic on MRI and not related to fall or current back pain complaints.
- RUE splint and sling - NWB in RUE.
-Pain control - transitioning from dilaudid prn to oxycodone prn. Tylenol can be added, and maybe lidoderm patch?
A-Fib: Stable and on Eliquis at home.
HTN: Medications currently on hold with CKD findings, monitor closely
Hypothyroidism: levothyroxine
Anemia: Likely multifactorial. Could be CKD related - Continue to monitor.
Psych: Could consider psychology consult while on rehab. Monitor mood
Skin: monitor for pressure sores/rashes/lesions.
Pain: acetaminophen or oxycodone as needed.
Bowel: Colace and Senna, PRN bisacodyl. Especially with increased opioid usage.
DVT Prophylaxis: On Eliquis for A-Fib
Pulmonary: Incentive spirometry
Safety: Continue to reinforce assistance with all transfers.
Code Status: Full code
Dispo (date/plan/equipment needs): Eventual home with family care. Social history reviewed.
Functional and Medical Goals: Modified Independent with ADL�s, ambulation, transfers
Summary
-
Things that must be addressed in Hospital prior to discharge:
1. Please continue bedside PT/OT.
2. Patient must be stable on oral pain medications and controlling pain adequately before discharge.
3. Blood pressure must be less than 180 systolic and 100 diastolic for 24 hours before being stable for transfer to SNF/acute rehab. (Currently off home BP meds)
Discharge Destination: Acute rehab when medically stable
Summary of recommendations:
- Discharge Destination: Acute rehab when medically stable
-Limited mobility, weakness, and difficulty due to pain, Sacral ala fracture.
-Safety risk/fall risk with NWB in RUE and needing training for urvashi-cane or other assistive device before D/C home.
Will sign off, please re-consult if needed.
Thank you for allowing me to care for your patient. Please contact me with any questions or concerns.
Data Reviewed
-
Radiology: Image Personally Visualized and interpreted and Report Reviewed by me
Labs: Labs Reviewed by me
Comments
-
This note was dictated using a voice recognition system. Please excuse any typographical errors from software sales representative. If you believe there are any discrepancies, please notify our office.
[2024-07-29 15:26] VITALS: BP 107/61
[2024-07-29] MEDS: LIPITOR 40 MG PO (18:13)
[2024-07-29 23:13] VITALS: BP 108/65
[2024-07-30] MEDS: TYLENOL PO ×2 (01:59→20:07)
[2024-07-30] MEDS: ROXICODONE 10 MG PO ×2 (01:59→23:58)
[2024-07-30] MEDS: SYNTHROID 25 MCG PO (05:17)
[2024-07-30 06:32] VITALS: BMI 25.3
[2024-07-30 07:03] LABS: Hematocrit 28.6 % (37.0-47.0); Hemoglobin 9.5 g/dL (12.0-16.0); Mean Corp Hgb Conc. 33.2 g/dL (33.0-37.0); Mean Corpuscular Hgb 30.3 pg (27.0-31.0); Mean Corpuscular Volume 91.1 fL (81.0-99.0); Platelet Count 181 10^3/uL (130-400); Red Blood Cell Count 3.14 10^6/uL (4.20-5.40); Red Cell Dist. Width 13.2 % (11.5-14.5); White Blood Cell Count 7.7 10^3/uL (4.8-10.8)
[2024-07-30 07:22] LABS: Blood Urea Nitrogen 31 mg/dl (7-17); Calcium 8.4 mg/dl (8.4-10.2); Carbon Dioxide 31 mmol/L (22-30); Chloride 95 mmol/L (98-107); Estimated Creatinine Clearance 33 ml/min; Glucose 103 mg/dl (70-99); Potassium 4.2 mmol/L (3.5-5.1); Sodium 131 mmol/L (135-145); eGFR 55.55
[2024-07-30 07:30] VITALS: BP 131/56
[2024-07-30] MEDS: ELIQUIS 2.5 MG PO ×2 (07:45→20:07)
[2024-07-30] MEDS: OCUVITE SOFTGEL 1 CAP PO (07:45)
[2024-07-30] MEDS: TYLENOL 1000 MG PO ×2 (07:45→14:12)
[2024-07-30] MEDS: LIDOCAINE 4% PATCH 1 PATCH TOPICAL (07:46)
[2024-07-30] MEDS: ROXICODONE 5 MG PO ×2 (07:49→20:07)
--- NOTE | 2024-07-30 14:39 | W.PN.HOSP.TC ---
Today's Communication/Plan
-
Medically stable for placement to rehab, acute vs SNF
Assessment / Plan
Assessment / Plan
Assessment:
Ambulatory dysfunction with mechanical fall
- PT/OT - SNF vs acute rehab. PMR eval.
Traumatic fractures
- Elbow xray: Acute fracture of the olecranon process of the ulna without significant displacement.
- shoulder xray: nondisplaced right distal clavicle fracture
- evaluated by orthopedics: nonoperative management with immobilization in posterior slab splint and sling.
- OP f/u in 2 weeks for repeat exam/radiographs
Lumbar back pain, traumatic
- L spine Xray: Mild L1 compression fracture. Age indeterminate. Multilevel degenerative disc disease.
- MRI L spine: Vertically oriented acute nondisplaced fracture of the right sacral ala.
- pain control with Tylenol QID standing, prn Oxycodone, prn Dilaudid
Leukocytosis
- reactive
- UA negative
- CXR without acute infection
- monitor WBC and fever trend
Parox A. Fib
Essential HTN
- continue Eliquis
- holding ARB/HCTZ
- monitor BP
HLD - statin
Suspected CKD stage 3b
- monitor Cr
DVT ppx: Eliquis
Code: Full
Anticipated Discharge: 24 - 48 hours
Subjective/Interval History
-
Date of Service: July 30, 2024
pain control adequate
denies new complaints
Objective Data
-
Labs:
Laboratory Results
07/30/24
06:34
WBC 7.7
Hgb 9.5 L
Hct 28.6 L
Plt Count 181
Sodium 131 L
Potassium 4.2
Chloride 95 L
Carbon Dioxide 31 H
BUN 31 H
Creatinine 1.0
Glucose 103 H
Calcium 8.4
Vital Signs:
Vital Signs
Temp Pulse Resp BP Pulse Ox
98 F 85 16 131/56 92
07/30/24 07:30 07/30/24 07:30 07/30/24 07:30 07/30/24 07:30 07/30/24 07:30
I&O
07/29/24 07/30/24 07/31/24
06:59 06:59 06:59
Intake Total 480 / 480 1200 / 1200
Balance 480 / 480 1200 / 1200
Physical Exam
-
General: No Apparent Distress
HEENT: Normocephalic and Atraumatic
Respiratory: Negative Wheezes
Cardiac: Regular Rhythm and S1/S2
GI: Soft
Genito-urinary: No Costovertebral Tender
Neuro: AO x 3
Hematologic / Lymphatic: No Lymphadenopathy
Psych: Calm
Data Reviewed
-
Total Time Spent with Patient (in minutes): 45
Labs: Labs Reviewed by me
[2024-07-30 15:59] VITALS: BP 109/60
[2024-07-30] MEDS: LIPITOR 40 MG PO (17:08)
[2024-07-30 19:10] VITALS: BP 121/64
[2024-07-30 23:15] VITALS: BP 144/61
[2024-07-31] MEDS: TYLENOL PO ×2 (02:29→08:36)
--- NOTE | 2024-07-31 05:13 | PTCARENOTE ---
Patient upset and agitated, expressed feeling like she was 'deserted.' Patient stated she had no water all night and no one to check on her. There were two cups of water on patients bedside table and patient holding a third cup, sipping on fresh
water that PCT brought her 30 minutes prior. PCT and RN performed hourly rounds throughout shift, patient sleeping throughout night. Earlier in the shift, patient annoyed that room was being cleaned and that a new roommate arrived in the room.
Patient stated 'I'm not trying to be crabby, but this is too late for all of this.' Patient also stating that she felt 'out of the loop' with her POC. Reiterated POC with patient several times. Patient unsatisfied. This RN let patient know that case
mgmt and doctors would be in to see her today to give her an updated plan. Patient again expressed feeling deserted. Offered for patient to come sit in the nurses station, put the tv on. Patient declined all options. Plan of care ongoing. Call marte
within reach.
[2024-07-31] MEDS: SYNTHROID 25 MCG PO (05:44)
[2024-07-31 07:44] VITALS: BP 142/71
[2024-07-31] MEDS: LIDOCAINE 4% PATCH 1 PATCH TOPICAL (08:35)
[2024-07-31] MEDS: ELIQUIS 2.5 MG PO (08:35)
[2024-07-31] MEDS: OCUVITE SOFTGEL 1 CAP PO (08:35)
[2024-07-31] MEDS: ULTRAM 50 MG PO (11:17)
--- NOTE | 2024-07-31 11:24 | W.PN.HOSP.TC ---
Addendum entered and electronically signed by Shannan Vera MD 08/01/24 18:16:
Hyponatremia
Original Note:
Today's Communication/Plan
-
Medically stable for placement to rehab, acute
Assessment / Plan
Assessment / Plan
Assessment:
Ambulatory dysfunction with mechanical fall
- PT/OT - PMR evaluated; acute rehab being planned
Traumatic fractures
- Elbow xray: Acute fracture of the olecranon process of the ulna without significant displacement.
- shoulder xray: nondisplaced right distal clavicle fracture
- evaluated by orthopedics: nonoperative management with immobilization in posterior slab splint and sling.
- OP f/u in 2 weeks for repeat exam/radiographs
Lumbar back pain, traumatic
- L spine Xray: Mild L1 compression fracture. Age indeterminate. Multilevel degenerative disc disease.
- MRI L spine: Vertically oriented acute nondisplaced fracture of the right sacral ala.
- pain control with Tylenol QID standing. Prn Tylenol (mild), Prn Tramadol (moderate), prn Oxycodone (severe)
Leukocytosis
- reactive
- UA negative
- CXR without acute infection
- monitor WBC and fever trend
Parox A. Fib
Essential HTN
- continue Eliquis
- resume ARB
- stop HCTZ
- monitor BP
HLD - statin
Suspected CKD stage 3b
- monitor Cr
DVT ppx: Eliquis
Code: Full
Anticipated Discharge: Within 24 hours
Subjective/Interval History
-
Date of Service: July 31, 2024
did not tolerated 10mg Oxycodone - lightheaded
Objective Data
-
Vital Signs:
Vital Signs
Temp Pulse Resp BP Pulse Ox
97.8 F 92 16 142/71 91
07/31/24 07:44 07/31/24 07:44 07/31/24 07:44 07/31/24 07:44 07/31/24 07:44
I&O
07/30/24 07/31/24 08/01/24
06:59 06:59 06:59
Intake Total 1200 / 1200 840 / 840
Balance 1200 / 1200 840 / 840
Physical Exam
-
General: No Apparent Distress
HEENT: Normocephalic and Atraumatic
Respiratory: Negative Wheezes
Cardiac: Regular Rhythm and S1/S2
GI: Soft and Nontender
Genito-urinary: No Costovertebral Tender
Neuro: AO x 3
Hematologic / Lymphatic: No Lymphadenopathy
Psych: Calm
Data Reviewed
-
Total Time Spent with Patient (in minutes): 44
Labs: Labs Reviewed by me
--- NOTE | 2024-07-31 12:07 | W.DS.TRANS ---
DC Summary - [employer] Work[employer]
-
Discharge Instructions:
Sleep Apnea Risk Low
Discharge Diagnosis/Procedures Traumatic fracture of R distal clavicle, R ulna
and R sacral ala, ambulatory dysfunction
Diet Regular
Activity As tolerated
Bathing Restrictions None
Instructions:
Stand-Alone Forms:
Changes to Home Medications: No
Discharge Medications:
DC Medications w/original date entered in [facility]
apixaban 2.5 mg tablet (Eliquis) 2.5 mg PO BID atrial fibrillation 07/26/24
atorvastatin 40 mg tablet 40 mg PO HS High Cholesterol 07/26/24
levothyroxine 25 mcg tablet 25 mcg PO DAILY Thyroid 07/28/24
vit C 250 mg-vit E 90 mg-zinc 40 mg-copper 1 [id number] capsule (PreserVision AREDS-2) 1 cap PO DAILY Supplement 07/28/24
acetaminophen 500 mg tablet (Tylenol Extra Strength) 1,000 mg (2 x 500 mg) PO Q6H #100 tabs 07/31/24
lidocaine 4 % topical patch 1 patch topical DAILY #30 ea 07/31/24
olmesartan 20 mg tablet 20 mg PO DAILY #30 tabs 07/31/24
oxycodone 5 mg tablet 5 mg PO Q4HPRN PRN severe pain #20 tabs 07/31/24
polyethylene glycol 3350 17 gram oral powder packet 17 g PO DAILYPRN PRN constipation #30 ea 07/31/24
sennosides 8.6 mg-docusate sodium 50 mg tablet 1 tab PO BIDPRN PRN constipation #60 tabs 07/31/24
tramadol 50 mg tablet 50 mg PO Q6HPRN PRN moderate pain #20 tabs 07/31/24
Home Medication Changes
Pending Results: No
Total time spent discharging patient (in min): 41
[2024-07-31 12:54] VITALS: BP 134/73; BP 136/74; PULSE 99; O2SAT 95
--- NOTE | 2024-07-31 15:05 | CM ---
Received notification from attending that patient is medically stable for discharge. PMNR note states indication for acute. CM note indicated director of cardiac cath lab stated that she can't accept. Placed a call back to admissions at [facility] and [facility]
answered and stated that if MD stated acute is appropriate that is all she needs besides authorization from insurance company to accept her. NPI to obtain auth [facility]-[id number] and Dr. Silverio [id number] Spoke with PT and OT. Both indicated acute
rehab would be best.
Placed a call to patient's insurance and spoke with a paper sales representative named, Ave, who took all of patient's clinical and rendered auth: [id number]
07/31-08/04 NRD 08/04
Report # [phone] fax [phone]
Spoke with attending who confirmed that patient is medically stable for discharge.
Patient and her spouse updated and agreeable to plan.
IMM reviewed, signed and on chart.
RN, [employer] rebuilder updated.
Plan: Case management will continue to follow and assist with discharge planning. Alexandru.
[2024-07-31] MEDS: TYLENOL 1000 MG PO (15:16)
--- NOTE | 2024-07-31 15:29 | PN.CDI ---
CDI
- -
CDI:
Physician Documentation Request
Admit Date: 07/28/24 09:39
Dear Doctor Jody,
Patient admitted for multiple traumatic fractures.
Sodium results:
Laboratory Tests
07/26/24 07/28/24 07/29/24
01:08 07:46 06:43
Sodium 137 134 L 133 L
07/30/24
06:34
Sodium 131 L
Could you please provide a diagnosis that supports the above lab abnormalities and additional evaluation/ monitoring:
Hyponatremia
Abnormal lab value clinically insignificant
Other
Use of terms such as suspected, likely, concern for, or probable (associated with a specific diagnosis that is being evaluated, monitored, or treated as if it exists) are acceptable and can be coded in the inpatient setting, when documented at the
time of discharge.
Thank you,
Sharri Mayorga RN, BSN
CDI Specialist
tiger text
Please use your independent medical judgment in providing your response.
[2024-07-31 15:32] VITALS: BP 141/71
== END 2024-07-31 16:22 | DRG 552 ==
LOC: 3 WEST ACU 09:39
PROVIDERS: Nurse Practitioner; ADMITTING PHYSICIAN Internal Medicine; ATTENDING PHYSICIAN Internal Medicine; CONSULT PHYSICIAN Orthopaedic Surgery; EMERGENCY PHYSICIAN Emergency Medicine; FAMILY PHYSICIAN Nurse Practitioner Adult Health; OTHER PHYSICIAN Physical Medicine & Rehabilitation
DX: S32.119A Unspecified Zone I fracture of sacrum, initial encounter for closed fracture (principal); S32.010A Wedge compression fracture of first lumbar vertebra, initial encounter for closed fracture; E87.1 Hypo-osmolality and hyponatremia; S52.024A Nondisplaced fracture of olecranon process without intraarticular extension of right ulna, initial encounter for closed fracture; S42.034A Nondisplaced fracture of lateral end of right clavicle, initial encounter for closed fracture; W01.0XXA Fall on same level from slipping, tripping and stumbling without subsequent striking against object, initial encounter; Y93.01 Activity, walking, marching and hiking; Y92.000 Kitchen of unspecified non-institutional (private) residence as the place of occurrence of the external cause; E03.9 Hypothyroidism, unspecified; E78.00 Pure hypercholesterolemia, unspecified; I12.9 Hypertensive chronic kidney disease with stage 1 through stage 4 chronic kidney disease, or unspecified chronic kidney disease; N18.32 Chronic kidney disease, stage 3b; R26.2 Difficulty in walking, not elsewhere classified; I48.0 Paroxysmal atrial fibrillation; I45.10 Unspecified right bundle-branch block; D72.829 Elevated white blood cell count, unspecified; D64.9 Anemia, unspecified; Z79.890 Hormone replacement therapy; Z79.01 Long term (current) use of anticoagulants
CPT/HCPCS: 29105; 71046; 72100; 72148; 73030; 73080; 73502; 80048; 80053; 81003; 85025; 85027; 93005; 97110; 97116; 97163; 97167; 97530; 97535; 99285